=== PATIENT | male | born 1975 | race Caucasian/White ===

== ENCOUNTER 2019-04-27 13:27 | Outpatient (REF) | payer MEDICAID, SELFPAY ==
[2019-04-27 22:12] LABS: Anion Gap 10.4 mmol/L (3-11); BUN 20 mg/dL (7-18); CO2 28.6 mmol/L (21.0-32.0); CREATININE 0.63 mg/dL (0.70-1.30); Calcium 9.1 mg/dL (8.5-10.1); Calculated LDL 125 mg/dL (<100); Chloride 105 mmol/L (98-107); Cholesterol 215 mg/dL (<200); Glucose 88 mg/dL (74-106); HDL Cholesterol 55 mg/dL (40-60); Potassium 4.1 mmol/L (3.5-5.1); Sodium 144 mmol/L (136-145); Triglyceride 179 mg/dL (<150)
== END 2019-04-27 13:47 ==
LOC: NCHCN 13:27
PROVIDERS: PCP Nurse Practitioner Family; Visit Provider Nurse Practitioner Family
DX: R03.0 Elevated blood-pressure reading, without diagnosis of hypertension (principal); Z13.220 Encounter for screening for lipoid disorders
CPT/HCPCS: 80048; 80061

== ENCOUNTER 2025-01-23 09:31 | Emergency (ER) | payer MEDICAID, SELFPAY ==
[2025-01-23 09:34] VITALS: BP 162/92; PULSE 50; RESP 16; TEMP 36.6; O2SAT 98
--- NOTE | 2025-01-23 10:46 | W.ED.GENAD ---
Discharge Plan Disposition Patient Disposition: Home Discharge Details Clinical Impression: Laceration of left thigh Primary Care Provider: Cindy Parada ED Provider: Jer Castaneda Home Meds and New Rx's Prescriptions: New amoxicillin-pot clavulanate 875-125 mg tablet 1 tab PO BID Qty: 14 0RF Discharge Instructions Instructions: Taking care of cuts, scrapes, and puncture wounds, Wound Infection Additional Instructions: Please follow-up with your primary care provider regarding your visit to the emergency department today. Please take the prescribed Augmentin as a prophylactic treatment for possible infection. Please return emergency department if you develop rash, fever, chills, nausea, vomiting or pus leaking from the wound. Should your symptoms worsen, or if you develop new concerning symptoms, please return immediately emergency department for further evaluation. Stand Alone Forms: Portal Information Discharge Data Discharge Date/Time-TO BE ENTERED AT DEPARTURE: 01/23/25 10:33 HPI General Date/Time Provider Initiated Documentation: 01/23/25 09:45. HPI Narrative: MDM/Narrative: 49-year-old male presents for left thigh laceration. Updated tetanus. Laceration. Stable for discharge Clinical impression: Laceration Disposition: Home HPI: 49-year-old male presents for evaluation of left thigh laceration which occurred when he accidentally stabbed self with a knife that he was using to skin a barrier. Denies any other injuries. ROS: Negative besides as mentioned above Exam: Gen: A&O NAD HEENT: NCAT, EOMI, not icteric. External ears normal. No rhinorrhea. Moist mucous membranes. Neck: Supple, full range of motion, no observable masses, No meningeal sign. Lungs: No Respiratory distress. CV: RRR, no edema. Abdomen: Soft, nondistended, No rebound tenderness. MSK: No joint swelling, no redness. Patient able to flex and extend the knee. Skin: No rashes, petechiae, lesions. Normal color per patient. There is an approximate 1-1/2 inch long linear laceration to the left medial thigh. Neuro: Normal Gait, Grossly intact. Psych: Appropriate for situation. Related Data Home Medications Medication Instructions Recorded Confirmed amoxicillin 875 mg-potassium 1 tab PO BID #14 tabs 01/23/25 clavulanate 125 mg tablet Previous Rx's Medication Instructions Recorded amoxicillin 875 mg-potassium 1 tab PO BID #14 tabs 01/23/25 clavulanate 125 mg tablet Allergies Allergy/AdvReac Type Severity Reaction Status Date / Time No Known Allergies Allergy Unverified 01/23/25 09:36 General Stated Complaint: Laceration SARKIS: 4 Course Vital Signs Vital signs: Vital Signs Temperature 36.6 C 01/23/25 09:34 Pulse 50 L 01/23/25 09:34 Respiratory Rate 16 01/23/25 09:34 Blood Pressure 162/92 H 01/23/25 09:34 Pulse Oximetry 98 01/23/25 09:34 Temperature 36.6 C 01/23/25 09:34 Temperature Source Oral 01/23/25 09:34 Pulse 50 L 01/23/25 09:34 Respiratory Rate 16 01/23/25 09:34 Blood Pressure 162/92 H 01/23/25 09:34 Blood Pressure Position Sitting 01/23/25 09:34 Pulse Oximetry 98 01/23/25 09:34 Oxygen Delivery Method Room Air 01/23/25 09:34 Oxygen Flow Rate 0 01/23/25 09:34 Pain Level 1 01/23/25 09:34 Procedure Laceration Laceration 1: Date of Procedure: 01/23/25 Time of procedure: 09:55 Provider that performed the procedure: Jer Castaneda Standard Time Out Performed: Yes Patient Consented: Verbally Site: lower extremity Side (If applicable): left Description: linear Depth: simple, single layer Local anesthetic: Lidocaine 1% and with Epi Amount of anesthesia used (mL): 3 Skin layer closed with: vicryl Suture size: 4-0 Number of sutures:: 3 Technique: simple, interrupted Complications: None PFSH All Active Problems (Updated 01/23/25 @ 10:16 by Jer Castaneda MD) Laceration of left thigh (Acute) Social History Smoking/Tobacco Use Status: Never Smoking risk assessment performed?: Yes Alcohol Intake: current Alcohol Intake frequency: holidays/special occasions only Alcohol type: beer Substance use type: does not use Housing: house Do you feel safe at home: Yes Do you feel safe in your relationship?: Yes
== END 2025-01-23 10:33 | disposition home or self-care (01) ==
LOC: ER 10:37
PROVIDERS: Emergency Provider General Practice; PCP Nurse Practitioner Family
DX: S71.112A Laceration without foreign body, left thigh, initial encounter (principal); W26.0XXA Contact with knife, initial encounter
CPT/HCPCS: 12002